=== PATIENT | female | born 2005 | race Caucasian/White ===

== ENCOUNTER 2024-07-18 07:56 | Emergency (ER) | payer MEDICAID ==
[~2024-07-18] VITALS: Ht 157.5 cm; Wt 69.0 kg
[2024-07-18 08:08] VITALS: O2SAT 98
[2024-07-18] MEDS: ALBUTEROL (0.083%) 2.5MG/3ML NEB HHN STA (09:37)
[2024-07-18] MEDS: IPRATROPIUM BROMIDE (0.02%) 0.5MG/2.5ML NEB HHN STA (09:37)
[2024-07-18 09:38] VITALS: PULSE 90; RESP 16
[2024-07-18] MEDS: PREDNISONE 20MG TABLET PO STA (11:11)
[2024-07-18 12:34] VITALS: BP_DIAS 73
[2024-07-18] MEDS ORDERED: ALBU90AE INH (12:52)
[2024-07-18] MEDS ORDERED: P20 MT (12:52)
[2024-07-18 13:42] VITALS: BP_SYST 113; PULSE 100; RESP 14; TEMP 37.3; O2SAT 95
== END 2024-07-18 13:43 | disposition home or self-care (01) ==
LOC: ER 07:56
DX: J06.9 Acute upper respiratory infection, unspecified (principal); B97.89 Other viral agents as the cause of diseases classified elsewhere; J45.901 Unspecified asthma with (acute) exacerbation; I10 Essential (primary) hypertension; Z20.822 Contact with and (suspected) exposure to COVID-19
CPT/HCPCS: 81025; 71045; 99285; 87426; J7512; Z7610 ×3; 94003